=== PATIENT | male | born 1950 | race Caucasian/White ===

== ENCOUNTER → 2016-11-30 10:00 | Outpatient (CLI) | payer MEDICARE, BC ==
[2015-01-02 14:12] VITALS: BMI 32.0
[~2016-11-30 10:00] MED LIST: ACETAMINOPHEN500 M1 PO; ASCORBIC ACID500 MG PO; BAYER CHEWABLE81 MG PO; DIPHEDRYL25 MG PO; LISINOPRIL2.5 MG PO; MULTIPLE VITAMI1 TA1 PO; NEURONTIN600 MG PO; PEPCID20 MG PO; ULTRAM50 MG PO; VITAMIN D2000 UNIT PO; ZANTAC150 MG PO
== END | disposition home or self-care (01) ==
LOC: D.RAD 10:00
DX: R06.00 Dyspnea, unspecified (principal)

== ENCOUNTER 2016-12-15 11:41 | Emergency (ER) | payer MEDICARE, BC ==
[2015-01-02 14:12] VITALS: BMI 32.0
== END 2016-12-15 14:25 | disposition left against medical advice (07) ==
LOC: D.ER 11:41
DX: T18.0XXA Foreign body in mouth, initial encounter (principal); X58.XXXA Exposure to other specified factors, initial encounter; Y93.89 Activity, other specified; Y92.89 Other specified places as the place of occurrence of the external cause

== ENCOUNTER 2016-12-24 12:39 | Inpatient (IN) | payer MEDICARE, BC ==
[~2016-12-24] VITALS: Ht 172.7 cm; Wt 96.6 kg
--- NOTE | ~2016-12-24 | OP ---
PATIENT NAME: ALANNA LOPEZ MEDICAL RECORD: [id number] :[birth year] LOCATION:[facility] ADMISSION DATE:12/24/16 SURGEON: SILVERIO HANKINS MD DATE OF OPERATION: 12/25/2016 PREOPERATIVE DIAGNOSES: 1. Retained foreign body in the appendix. 2. Hypertension. 3. Coronary artery disease. 4. Gastroesophageal reflux disease. POSTOPERATIVE DIAGNOSES: 1. Retained foreign body in the appendix. 2. Hypertension. 3. Coronary artery disease. 4. Gastroesophageal reflux disease. PROCEDURE: Laparoscopic appendectomy. SURGEON: Silverio Hankins MD. REPORT OF PROCEDURE: Preoperatively, the patient had had a CT scan showing evidence of metallic object in the base of the appendix. The patient was taken to the operating room and his abdomen was prepped and draped in sterile fashion. A skin incision was made on the superior aspect of the umbilicus, 0 Vicryls were placed in the fascia bilaterally and the fascia was incised with 15-blade. I then bluntly entered the peritoneal cavity and placed a 12-mm Cecile port. Under direct visualization, a 5-mm trocar was placed in the left lower quadrant and another 5-mm trocar was placed in the suprapubic region. The appendix was grasped and elevated and showed no signs of any inflammatory changes. I could not feel any evidence of a firm mass initially with grabbing. The appendix was long and tortuous with a lot of fatty tissue around it. I was eventually able to pull the appendix up and upon feeling the base of the appendix, I did not feel this metallic structure. I went ahead and made a window between the base of the appendix and the mesoappendix, and the appendix was transected using a 45 blue load Endo-SHALINI stapler. The mesoappendix was then transected with the 45 white load Endo-SHALINI stapler. The appendix was removed and sent out to pathology. They requested an x-ray and upon x-ray, it showed that the metallic structure was not present within the appendix. The patient's fascia at this point have been closed with interrupted 0 Vicryls times 3. The subcutaneous tissues were irrigated out with normal saline and infused with 10 mL of 0.25% Marcaine with epinephrine. The skin incisions were all closed with subcutaneous 5-0 Monocryl and dressed appropriately. The patient had been set up for postoperatively x-ray of the abdomen as it was felt that the metallic structure probably just fallen out of the appendix and into the colon with manipulation. COMPLICATIONS: None. CONDITION: Stable. ANESTHESIA: General endotracheal and local. BLOOD LOSS: Minimal. TRANSINT:[id number] Voice Confirmation ID: [id number] DOCUMENT ID: [id number] OPERATIVE REPORT [id number] ALANNA LOPEZ CHRISTIAN MD CC: JOSE M FERNANDEZ DO [id number] DICTATION DATE: 12/25/16 1024 MOBILITY ENGINEER: 12/25/16 1408 ADM IN [facility] [address] [place] [address]
--- NOTE | 2016-12-24 12:55 | NUR ---
RECEIVED TO ROOM [address] FERNANDEZ'S OFFICE. A/O X3. IN ROOM. NO C/O PAIN OR DISCOMFORT AT THIS TIME. SKIN INTACT EXCEPT SMALL SCABBED AREA TO RIGHT CLAVICAL AREA AND WHAT PATIENT STATES ARE MULTIPLE ANT BITES TO RIGHT ANKLE. IV SITED TO RIGHT HAND AFTER 2 ATTEMPTS WITH 22G.
[2016-12-24] MEDS ORDERED: COREG6.25 MG PO (13:00)
[2016-12-24] MEDS ORDERED: OMEPRAZOLE20 M1 PO (13:00)
[2016-12-24 13:01] VITALS: BP 143/71; BMI 32.4
[2016-12-24 14:37] LABS: BASOPHILS 0.5 % (0-2); EOSINOPHILS 2.7 % (0-7); HEMATOCRIT 42.3 % (42.0-54.0); HEMOGLOBIN 14.4 g/dL (13.5-17.5); IMMATURE GRANULOCYTES 0.4 % (0-5); LYMPHOCYTES 26.9 % (15-50); MCH 31.5 pg (26.0-34.0); MCV 92.6 fL (80.0-100.0); MEAN PLATELET VOLUME 9.7 fL (7.4-10.4); MONOCYTES 7.4 % (2-11); NEUTROPHILS 62.1 % (40-80); PLATELET COUNT 187 10x3/uL (130-400); RBC 4.57 10x6/uL (4.20-6.10); RDW 12.4 % (11.5-14.5); WBC 9.2 10x3/uL (4.8-10.8)
[2016-12-24 14:59] LABS: ALBUMIN 3.7 g/dL (3.4-5.0); ALKALINE PHOSPHATASE 56 U/L (46-116); ALT (SGPT) 33 U/L (10-68); BILIRUBIN - TOTAL 0.46 mg/dL (0.2-1.3); CALC OSMOLALITY 280 mosm/kg (275-300); CALCIUM 8.8 mg/dL (8.5-10.1); CARBON DIOXIDE 25.3 mmol/L (21.0-32.0); CHLORIDE - SERUM 106 mmol/L (98-107); CREATININE - SERUM 0.9 mg/dL (0.6-1.3); GLUCOSE 95 mg/dL (74-106); POTASSIUM - SERUM 4.1 mmol/L (3.5-5.1); PROTEIN - SERUM 6.2 g/dL (6.4-8.2); SODIUM 140 mmol/L (136-145); UREA NITROGEN 18 mg/dL (7-18); eGFR NON AFRICAN AMERICAN 90 mL/min (90-120)
[2016-12-24 16:17] VITALS: BP 143/91
--- NOTE | 2016-12-24 17:30 | NUR ---
SPOKE WITH DR MILLIE AMADOR C/O ITCHING TO ANT BITES. NEW ORDERS RECEIVED.
--- NOTE | 2016-12-24 18:11 | NUR ---
DR. HANKINS HERE AT THIS TIME.
[2016-12-24 20:00] VITALS: BP 140/79
--- NOTE | 2016-12-24 22:08 | NUR ---
ASSESSED AT THE BEGINNING OF THE SHIFT. PT IS ALERT AND ORIENTED, ABLE TO VERBALIZE NEEDS. HE IS AWARE THAT HE WILL BE NPO AT MIDNIGHT FOR SURGERY IN THE AM. KENALOG CREAM WAS APPLIED TO HIS RIGHT ANKLE AND HIP BY PT FOR ICTHING OF ANT BITES HE RECEIVED AT HOME. HE IS ABLE TO GET UP TO THE BATHROOM AD BLADIMIR AND TURNS BY HIMSELF. THE BED IS LOW, RAILS UP X'S 2 WITH THE CALL LIGHT AT HAND.
[2016-12-25] VITALS (14 sets, daily range): BP systolic 116–152; BP diastolic 64–88; Ht 172.7 cm; Wt 96.6 kg
[2016-12-25 05:42] LABS: BASOPHILS 0.8 % (0-2); HEMATOCRIT 40.5 % (42.0-54.0); HEMOGLOBIN 13.6 g/dL (13.5-17.5); IMMATURE GRANULOCYTES 0.1 % (0-5); LYMPHOCYTES 39.7 % (15-50); MCH 31.6 pg (26.0-34.0); MCHC 33.6 g/dL (31.0-37.0); MCV 94.2 fL (80.0-100.0); MEAN PLATELET VOLUME 9.8 fL (7.4-10.4); MONOCYTES 8.7 % (2-11); NEUTROPHILS 46.7 % (40-80); PLATELET COUNT 205 10x3/uL (130-400); RDW 12.4 % (11.5-14.5); WBC 7.3 10x3/uL (4.8-10.8)
[2016-12-25 05:52] LABS: ALBUMIN 3.1 g/dL (3.4-5.0); ALKALINE PHOSPHATASE 49 U/L (46-116); ALT (SGPT) 27 U/L (10-68); BILIRUBIN - TOTAL 0.28 mg/dL (0.2-1.3); CALC OSMOLALITY 281 mosm/kg (275-300); CALCIUM 8.6 mg/dL (8.5-10.1); CARBON DIOXIDE 28.5 mmol/L (21.0-32.0); CHLORIDE - SERUM 107 mmol/L (98-107); CREATININE - SERUM 0.9 mg/dL (0.6-1.3); GLUCOSE 105 mg/dL (74-106); POTASSIUM - SERUM 3.9 mmol/L (3.5-5.1); PROTEIN - SERUM 5.7 g/dL (6.4-8.2); SODIUM 141 mmol/L (136-145); UREA NITROGEN 16 mg/dL (7-18); eGFR NON AFRICAN AMERICAN 90 mL/min (90-120)
--- NOTE | 2016-12-25 07:53 | NUR ---
AWAKE AND ALERT. ORIENTED X3. NO C/O AT THIS TIME. LUNGS ARE CLEAR BILATERALLY, NO COUGH NOTED. SKIN IS INTACT WITHOUT REDNESS EXCEPT AREAS WITH ANT BITES WHICH THE KENALOG IS HELPING WITH THE ITCHING. IV TO RIGHT HAND IS PATENT WITHOUT REDNESS AT INSERTION SITE. DENIES NEEDS.
--- NOTE | 2016-12-25 10:02 | NUR ---
RETURNED FROM SURGERY. A/O X3. AT BEDSIDE. 3 SMALL INSERTION SITES TO ABDOMEN WITH DRY INTACT BANDAIDS IN PLACE.
--- NOTE | 2016-12-25 10:21 | NUR ---
PT'S WEDDING RING REMOVED IN HOLDING PER SANGEETHA AND TAKEN TO PT'S IN HIS ROOM PT STATES THAT HE WANTS TO KEEP THE FOREIGN BODY, I EXPLAINED TO HIM THAT HE WOULD HAVE TO REQUEST IT FROM PATHOLOGY
--- NOTE | 2016-12-25 13:07 | NUR ---
Patient Name: ALANNA LOPEZ Admission Status: Urgent Accout number: [id number] Admission Date: 12-24-2016 : 1950 Admission Diagnosis:FOREIGN BODY IN COLON, INITIAL ENCOUNTER Attending: OMAR Current LOS: 1 Anticipated DC Date: 12-27-2016 Planned Disposition: Home Primary Insurance: MEDICARE A & B Discharge Planning Comments: CM MET WITH PT ADN (YOLETTE) TO ASSESS DISCHARGE PLANNING & NEEDS. PT STATED DISCHARGE PLAN IS TO RETURN TO HOME AND STATES THAT IT IS A SAFE ENVIRONMENT AND HIS WILL DRIVE HIME HOME WHEN THE TIME COMES. PT DENIES ANY OTHER CM NEEDS AT THIS TIME. CM WILL CONTINUE TO FOLLOW AND ASSIST NEEDED WITH DISCHARGE PLANNING/NEEDS. PCP: JIM PHARMACY: [facility] YOLETTE LOPEZ (SPOUSE) [phone] Campus Interviews Intern: Ro Underwood * Is the patient Alert and Oriented? Yes 0 * How many steps to enter\exit or inside your home? 0 0 * PCP JIM 0 * [facility] 0 * Preadmission Environment Home with Family 0 * ADLs Independent 0 * Equipment None 0 * List name and contact numbers for known caregivers / representatives who currently or will assist patient after discharge: YOLETTE LOPEZ (SPOUSE) [phone] 0 * Community resources currently utilized None 0 * Additional services required to return to the preadmission environment? Yes 0 * Can the patient safely return to the preadmission environment? Yes 0 * Has this patient been hospitalized within the prior 30 days at any hospital? No 0 Grand Total: 0
[2016-12-25] MEDS ORDERED: DILAUDID2 MG PO (13:36)
--- NOTE | 2016-12-25 14:22 | NUR ---
ATE ALMOST ALL OF LUNCH. AMBULATED 100 FEET WITH SBA WITHOUT DIFFICULTY. NO C/O AT THIS TIME.
--- NOTE | 2016-12-25 14:53 | NUR ---
CM NOTE: PT DISCHARGING HOME TODAY EXPRESSES NO NEEDS FOR DISCHARGE. TO DRIVE HOME RIAN RILEY RN
--- NOTE | 2016-12-25 16:01 | NUR ---
AMBULATED OVER 500 FEET SBA WITHOUT DIFFCULTY. DISCHARGED TO HOME WITH AMBULATORY. DISCHARGE INSTRUCTIONS GIVEN BOTH VERBALLY AND WRITTEN. ALL QUESTIONS ANSWERED. PATIENT AND VERBALIZED UNDERSTANDING OF SAME. NEEDED PRESCRIPTIONS GIVEN TO PATIENT. IV TO RIGHT HAND D/C WITH CATHETER INTACT.
== END 2016-12-25 16:02 | disposition home or self-care (01) | DRG 343 ==
LOC: D.MS 12:39
PROVIDERS: Surgery; ADMIT Family Medicine
PROC: 0DTJ4ZZ Resection of Appendix, Percutaneous Endoscopic Approach (ICD-10-PCS; principal; 2016-12-25 13:00)
DX: T18.4XXA Foreign body in colon, initial encounter (principal); I10 Essential (primary) hypertension; X58.XXXA Exposure to other specified factors, initial encounter; Y93.E8 Activity, other personal hygiene; Y92.531 Health care provider office as the place of occurrence of the external cause; I25.10 Atherosclerotic heart disease of native coronary artery without angina pectoris; K21.9 Gastro-esophageal reflux disease without esophagitis

== ENCOUNTER → 2017-01-22 08:36 | Outpatient (CLI) | payer MEDICARE, BC ==
[2016-12-25 12:12] VITALS: BMI 32.3
[~2017-01-22 08:36] MED LIST changes: +COREG6.25 MG PO; +DILAUDID2 MG PO; +OMEPRAZOLE20 M1 PO
== END | disposition home or self-care (01) ==
LOC: D.MRI 01-21 14:30
DX: S82.65XA Nondisplaced fracture of lateral malleolus of left fibula, initial encounter for closed fracture (principal)

== ENCOUNTER 2018-07-26 07:30 | Inpatient (IN) | payer MEDICARE, BC ==
[2018-07-25 10:12] LABS: BASOPHILS 0.6 % (0-2); EOSINOPHILS 7.2 % (0-7); HEMATOCRIT 41.3 % (42.0-54.0); HEMOGLOBIN 14.1 g/dL (13.5-17.5); IMMATURE GRANULOCYTES 0.2 % (0-5); LYMPHOCYTES 45.7 % (15-50); MCH 31.4 pg (26.0-34.0); MCHC 34.1 g/dL (31.0-37.0); MEAN PLATELET VOLUME 9.3 fL (7.4-10.4); MONOCYTES 8.4 % (2-11); NEUTROPHILS 37.9 % (40-80); PLATELET COUNT 184 10x3/uL (130-400); RBC 4.49 10x6/uL (4.20-6.10); RDW 12.4 % (11.5-14.5); WBC 5.3 10x3/uL (4.8-10.8)
[2018-07-25 10:15] LABS: CALC OSMOLALITY 280 mosm/kg (275-300); CARBON DIOXIDE 27.8 mmol/L (21.0-32.0); CHLORIDE - SERUM 105 mmol/L (98-107); GLUCOSE 106 mg/dL (74-106); POTASSIUM - SERUM 4.2 mmol/L (3.5-5.1); SODIUM 141 mmol/L (136-145); UREA NITROGEN 13 mg/dL (7-18); eGFR NON AFRICAN AMERICAN 79 mL/min (90-120)
[2018-07-25 10:16] LABS: APTT 26.8 SECONDS (22.8-39.4); INR 1.08 (0.85-1.17); PROTIME 13.5 SECONDS (11.6-15.0)
[2018-07-25 10:18] LABS: APPEARANCE CLEAR (CLEAR); BILIRUBIN NEGATIVE (NEGATIVE); COLOR DK YELLOW (YELLOW); GLUCOSE NEGATIVE (NEGATIVE); KETONE NEGATIVE (NEGATIVE); NITRITE NEGATIVE (NEGATIVE); PROTEIN NEGATIVE (NEGATIVE); SPECIFIC GRAVITY 1.015 (1.005-1.020); UROBILINOGEN NORMAL (NORMAL)
[~2018-07-26] VITALS: Ht 175.3 cm; Wt 90.9 kg
--- NOTE | ~2018-07-26 | MORECARE ---
CASE MANAGEMENT DISCHARGE SUMMARY PATIENT: ALANNA LOPEZ UNIT: [id number] ADM DATE: 07/26/18 AGE: 68 : 51 SEX: M ROOM/BED: D.2222 AUTHOR: PASQUALE,DOC PHYSICIAN: REFERRING PHYSICIAN: JONATAN TAY DO DATE OF SERVICE: 07/28/18 Discharge Plan Patient Name: ALANNA LOPEZ Facility: [facility]:[place] : 1950 Planned Disposition: Home Anticipated Discharge Date: 07/27/18 Discharge Date: 07/27/2018 Expected LOS: 1 Initial Reviewer: [email or web address] Initial Review Date: 07/27/2018 Generated: 07/28/18 4:12 pm Comments DCP- Discharge Planning Updated by [email or web address]: Emerald Galicia on 07/27/18 1:[address] Patient Name: ALANNA LOPEZ Admission Status: Elective Accout number: [id number] Admission Date: 07-26-2018 : 1950 Admission Diagnosis: Attending: JONATAN TAY Current LOS: 1 Anticipated DC Date: 07-27-2018 Planned Disposition: Home Primary Insurance: [employer] Discharge Planning Comments: CM met with patient and his to discuss discharge planning. He lives with his in a one story home. He is independent with all ADL's and IADL's. His is here to drive him home. He has his arm in a sling and is dressed. He denies need for DME or home health services. No needs identified. CM will continue to follow and assist with discharge planning/needs. Dials Supervisor: Emerald Galicia DCPIA - Discharge Planning Initial Assessment Updated by [email or web address]: Emerald Galicia on 07/27/18 2:43 pm * Is the patient Alert and Oriented? Yes * How many steps to enter\exit or inside your home? 0/0 * PCP Dr. Baeza * [facility] * Preadmission Environment Home with Family * ADLs Independent * Equipment None * List name and contact numbers for known caregivers / representatives who currently or will assist patient after discharge: Shaneka - - [phone] * Verbal permission to speak to the caregivers and representatives has been obtained from the patient. Yes * Community resources currently utilized None * Additional services required to return to the preadmission environment? No * Can the patient safely return to the preadmission environment? Yes * Has this patient been hospitalized within the prior 30 days at any hospital? No Last DP export: 07/27/18 1:45 Patient Name: ALANNA LOPEZ Page [id number] at 1512 All edits/amendments must be made on the electronic document DICTATION DATE: 07/28/181511 PAVING AND SURFACING LABOURER: SHANT 07/28/181511 RPT#: [id number] DC DATE:07/27/18 STATUS: DIS IN [facility] [address] [place] [address] END OF REPORT
--- NOTE | ~2018-07-26 | OP ---
PATIENT NAME: ALANNA LOPEZ MEDICAL RECORD: [id number] :[birth year] LOCATION:[facility] ADMISSION DATE:07/26/18 SURGEON: AUSTEN TAY DO DATE OF OPERATION: 07/26/2018 PROCEDURE PERFORMED: Left total shoulder arthroplasty. PREOPERATIVE DIAGNOSIS: Severe end-stage left shoulder osteoarthritis. POSTOPERATIVE DIAGNOSIS: Severe end-stage left shoulder osteoarthritis. INDICATIONS: Mr. Lopez is a 68-year-old male who has been coming to my clinic for some time. He has severe end-stage arthritis. He has pain with motion and limited motion. He had injections and physical therapy, and eventually they stopped working. He wanted something done surgically. He is aware of the risks and benefits including infection, bleeding, damage to nerves or vessels, loss of function of shoulder, and need for further surgery. He signed the consent. SURGEON: Austen Tay DO DESCRIPTION OF PROCEDURE: The patient was given a block by anesthesia in the preoperative area. I was assisted by Tre Estrella, Advanced Nurse Practitioner. He passed instruments, held retractors, and closed the wounds. Surgery could not have been performed without his assistance. Once the patient was in the operative suite, he was given 900 mg of clindamycin preoperatively and a gram of TXA. The left shoulder was then prepped and draped in sterile fashion. Time-out was performed and everyone was in agreement with correct side, site, patient, and procedure. The incision had been marked out and incision began with a 10 blade scalpel down to the deltopec interval. The cephalic vein was encountered and taken laterally. A Cardoza was taken at that time to loosen the adhesions in the subacromial space and over the deltoid on top of the rotator cuff. Then, the brown retractor was put into place and the proximal first centimeter of the pedicle was released. Long head of the biceps tendon was tenodesed to this and cut. The rotator interval was then opened and the subscap was tagged and peeled off the lesser tuberosity using the Bovie. The shoulder was then exposed. The cutting guide was put in the canal of the humerus and the humeral head was cut in 30 degrees of retroversion. Once the humeral head was cut, the anterior osteophytes were removed on the inferior neck and the glenoid was exposed. Once the glenoid was exposed, the labrum was removed as well as the biceps tendon off the superior labrum and a centering pin was used. The glenoid was sized and sized to be 40. The centering pin was then used and the half aguilar reamer was used to ream for the implant. The center drill had been done after this with center hole of the glenoid poly. The other 3 peripheral holes were then drilled and the site was cleaned thoroughly. Then, cement was entered into the holes and the glenoid poly was pressed in and held into place while the cement dried. Once the cement had dried, all the excess cement had been removed. The humeral head was once again exposed and broached to 4. This fit well. A 48 head was measured and seemed to fit very well. This was reduced and had very good fit with 50% shuck, which bounced back very quickly into the joint. Trial was then removed and the final implant was put into place after drill holes had been placed to reattach the subscapularis tendon. A #2 Ethibond was placed through them. Then, the actual implant was put in, impacted, and reduced. Then, the subscap tendon was repaired using Kevin-Estevan stitches to the lesser tuberosity of the humerus. The rotator OPERATIVE REPORT [id number] ALANNA LOPEZ W interval was then closed with same #2 Ethibond in a ripvet-sw-esuqb fashion. The range of motion of the shoulder was very good. Prior to the closure of the subscapularis tendon, Hibiclens was poured in the joint and irrigated out in order to clean the area. Then, the subscap was repaired. Surgicel beads were then placed into the wound and the interval between the deltoid and the pectoralis major was loosely closed with #1 Vicryl. Skin was closed with 2-0 Vicryl in inverted interrupted fashion with 4-0 Monocryl on the skin and then Prineo skin glue was placed on the skin for skin closure. Telfa and Tegaderm were then placed on top of the incision. The patient was placed in a sling with pillow, awakened, and taken to recovery in stable condition. BLOOD LOSS: Approximately 150 mL. COMPLICATIONS: None. TRANSINT:[id number] Voice Confirmation ID: [id number] DOCUMENT ID: [id number] AUSTEN TAY DO at 1543 CC: JOSE M FERNANDEZ DO [id number] DICTATION DATE: 07/26/18 1133 RADIO TELEVISION TECHNICAL DIRECTOR: 07/26/18 1326 ADM IN [place] [id number] [place] [address]
--- NOTE | ~2018-07-26 | MORECARE ---
CASE MANAGEMENT DISCHARGE SUMMARY PATIENT: ALANNA LOPEZ UNIT: [id number] ADM DATE: 07/26/18 AGE: 68 : [birth year] SEX: M ROOM/BED: D.2222 AUTHOR: PASQUALE,DOC PHYSICIAN: REFERRING PHYSICIAN: JONATAN TAY DO DATE OF SERVICE: 07/27/18 Discharge Plan Patient Name: ALANNA LOPEZ Facility: [facility]:[place] : 1950 Planned Disposition: Home Anticipated Discharge Date: 07/27/18 Discharge Date: Expected LOS: 1 Initial Reviewer: [email or web address] Initial Review Date: 07/27/2018 Generated: 07/27/18 3:45 pm Comments DCP- Discharge Planning Updated by [email or web address]: Emerald Galicia on 07/27/18 1:[address] Patient Name: ALANNA LOPEZ Admission Status: Elective Accout number: [id number] Admission Date: 07-26-2018 : 1950 Admission Diagnosis: Attending: JONATAN TAY Current LOS: 1 Anticipated DC Date: 07-27-2018 Planned Disposition: Home Primary Insurance: [employer] Discharge Planning Comments: CM met with patient and his to discuss discharge planning. He lives with his in a one story home. He is independent with all ADL's and IADL's. His is here to drive him home. He has his arm in a sling and is dressed. He denies need for DME or home health services. No needs identified. CM will continue to follow and assist with discharge planning/needs. Wire Dropper: Emerald Galicia DCPIA - Discharge Planning Initial Assessment Updated by [id number]: Emerald Galicia on 07/27/18 2:43 pm * Is the patient Alert and Oriented? Yes * How many steps to enter\exit or inside your home? 0/0 * PCP Dr. Baeza * [facility] [address] * Preadmission Environment Home with Family * ADLs Independent * Equipment None * List name and contact numbers for known caregivers / representatives who currently or will assist patient after discharge: Shaneka - faustino - [phone] * Verbal permission to speak to the caregivers and representatives has been obtained from the patient. Yes * Community resources currently utilized None * Additional services required to return to the preadmission environment? No * Can the patient safely return to the preadmission environment? Yes * Has this patient been hospitalized within the prior 30 days at any hospital? No Patient Name: ALANNA LOPEZ Page 81415 at 1445 All edits/amendments must be made on the electronic document DICTATION DATE: 07/27/181444 HOUSEHOLD MANAGER: SHANT 07/27/18 1445 RPT#: [id number] DC DATE: STATUS: ADM IN [facility] [address] [place] [address] END OF REPORT
[2018-07-26 08:17] VITALS: BP 134/73; BMI 29.6
[2018-07-26 12:47] VITALS: BP 132/79
[2018-07-26 12:58] VITALS: BP 132/79; Ht 175.3 cm; Wt 90.9 kg
[2018-07-26 17:31] VITALS: BP 122/81
[2018-07-26 20:00] VITALS: BP 128/85
[2018-07-27] VITALS: BP 139/97
[2018-07-27 04:00] VITALS: BP 120/74
[2018-07-27 05:02] LABS: BASOPHILS 0.1 % (0-2); EOSINOPHILS 0 % (0-7); HEMATOCRIT 37.5 % (42.0-54.0); HEMOGLOBIN 12.8 g/dL (13.5-17.5); IMMATURE GRANULOCYTES 0.2 % (0-5); LYMPHOCYTES 9.6 % (15-50); MCH 31.3 pg (26.0-34.0); MCHC 34.1 g/dL (31.0-37.0); MCV 91.7 fL (80.0-100.0); MEAN PLATELET VOLUME 9.4 fL (7.4-10.4); MONOCYTES 7.6 % (2-11); NEUTROPHILS 82.5 % (40-80); PLATELET COUNT 188 10x3/uL (130-400); RBC 4.09 10x6/uL (4.20-6.10); RDW 12.3 % (11.5-14.5); WBC 12.8 10x3/uL (4.8-10.8)
[2018-07-27 05:22] LABS: CALC OSMOLALITY 279 mosm/kg (275-300); CALCIUM 8.2 mg/dL (8.5-10.1); CARBON DIOXIDE 25.5 mmol/L (21.0-32.0); CHLORIDE - SERUM 105 mmol/L (98-107); GLUCOSE 145 mg/dL (74-106); POTASSIUM - SERUM 4.4 mmol/L (3.5-5.1); SODIUM 138 mmol/L (136-145); UREA NITROGEN 16 mg/dL (7-18); eGFR NON AFRICAN AMERICAN 79 mL/min (90-120)
[2018-07-27 08:15] VITALS: BP 123/73
[2018-07-27] MEDS ORDERED: KEFLEX500 MG PO (14:02)
[2018-07-27] MEDS ORDERED: VISTARIL50 MG PO (14:02)
[2018-07-27] MEDS ORDERED: OXYCODONE HCL5 M1 PO (14:02)
== END 2018-07-27 15:45 | disposition home or self-care (01) | DRG 483 ==
LOC: D.SDCHOLD 07:30 → D.MS 07:30 → D.SDCHOLD 09:00 → D.MS 12:45
PROVIDERS: Internal Medicine Nephrology; Orthopaedic Surgery
PROC: 0RRK0JZ Replacement of Left Shoulder Joint with Synthetic Substitute, Open Approach (ICD-10-PCS; principal; 2018-07-26 09:00)
DX: M19.012 Primary osteoarthritis, left shoulder (principal); I25.10 Atherosclerotic heart disease of native coronary artery without angina pectoris; I10 Essential (primary) hypertension

== ENCOUNTER → 2018-12-14 13:01 | Outpatient (CLI) | payer MEDICARE, BC ==
[2018-07-26 12:58] VITALS: BMI 29.6
[~2018-12-14 13:01] MED LIST changes: +KEFLEX500 MG PO; +OXYCODONE HCL5 M1 PO; +VISTARIL50 MG PO
== END | disposition home or self-care (01) ==
LOC: D.US 13:00
PROVIDERS: ATTEND Family Medicine
DX: R60.0 Localized edema (principal)

== ENCOUNTER 2018-12-24 19:31 | Emergency (ER) | payer MEDICARE, BC ==
[~2018-12-24] VITALS: Ht 175.3 cm; Wt 95.5 kg
[2018-12-24 19:36] VITALS: Ht 175.3 cm; Wt 95.5 kg
[2018-12-24] MEDS ORDERED: HYDROCODON-ACE1 EAC7 (19:38)
[2018-12-24] MEDS ORDERED: VOLTAREN75 MG PO (21:01)
[2018-12-24 21:35] VITALS: BP 132/85
== END 2018-12-24 21:35 | disposition home or self-care (01) ==
LOC: D.ER 19:31
DX: M25.512 Pain in left shoulder (principal); M75.92 Shoulder lesion, unspecified, left shoulder

== ENCOUNTER → 2019-07-19 08:37 | Outpatient (CLI) | payer MEDICARE, BC ==
[2018-12-24 19:36] VITALS: BMI 31.0
[~2019-07-19 08:37] MED LIST changes: +HYDROCODON-ACE1 EAC7; +VOLTAREN75 MG PO
--- NOTE | 2019-07-21 13:04 | EC ---
PATIENT:ALANNA LOPEZ DATE OF SERVICE: 07/19/19 SEX: M MEDICAL RECORD: [id number] DATE OF : [birth year] LOCATION:D.[facility] AGE OF PATIENT: 69 ADMISSION DATE: 07/19/19 REFERRING PHYSICIAN: INTERPRETING PHYSICIAN: ZUNILDA CLAY MD ECHOCARDIOGRAM REPORT ECHO CHARGES 4 ECHO COMPLETE Date: 07/19/19 CLINICAL DIAGNOSIS: ROTHMAN H/O CAD/HTN ECHOCARDIOGRAPHIC MEASUREMENTS (adult normal given) AC root (d.<3.7cm) 3.4 cm LV Septum d (<1.2 cm> 1.3 cm Valve Excursion 2.2 cm LV Septum (systole) 1.9 cm Left Atria (s.<4.0cm> 4.3 cm LVPW d(<1.2cm) 1.2 cm RV (d.<2.3cm) 2.6 cm LVPW (sytole) 1.8 cm LV diastole(<5.6CM) 4.8 cm MV E-F(>70mm/sec) cm LV systole 2.9 cm LVOT Diameter 2.2 cm MV exc.(>10mm) cm Est.ejection fraction (50-75%) % DOPPLER: LVIT cm/sec A 72.0 cm/sec E 62.0 cm/sec LA cm/sec RVSP mmHg LVOT 82.0 cm/sec AOP1/2T m/s Asc. Ao 113 cm/sec RVOT 62.0 cm/sec RA cm/sec PA 86.0 cm/sec AV Gradient Peak 5.2 mmHg AV Mean 3.1 mmHg AV Area 3.2 cm MV Gradient Peak 2.9 mmHg MV Mean 1.2 mmHg MV Area cm COMMENTS: OP - HC Program Management Specialist: Laverne ELOE Benzene Washer: 3 Dr. Coats TAPE# PACS Pericardial Effusion N DATE OF SERVICE: 07/19/2019 Adequate 2-D echo, color-flow and spectral Doppler, and M-mode. LVH is present. LV internal dimensions are normal. LV appears to be mildly globally hypo with EF probably lower limits of normal at 50%. Aortic valve sclerosis without evidence of stenosis by Doppler interrogation. Left atrium mildly dilated 4.3 cm. Mitral valve shows no prolapse. Trace MR. Right-sided chambers are grossly normal. Trace TR. ECHOCARDIOGRAM REPORT [id number] ALANNA LOPEZ TRANSINT:[id number] Voice Confirmation ID: [id number] DOCUMENT ID: [id number] ZUNILDA CLAY MD at 1304 CC: [id number] DICTATION DATE: 07/20/19 1500 TRACK GRINDER: 07/20/19 2321 DEP CLI 07/19/19 [place] [id number] [place] [address]
== END | disposition home or self-care (01) ==
LOC: D.HCCECHO 08:37
PROVIDERS: ATTEND Internal Medicine Interventional Cardiology
DX: I25.10 Atherosclerotic heart disease of native coronary artery without angina pectoris (principal)

== ENCOUNTER 2020-01-02 08:01 | Emergency (ER) | payer MEDICARE ==
[~2020-01-02] VITALS: Ht 175.3 cm; Wt 97.7 kg
[2020-01-02 08:15] VITALS: Ht 175.3 cm; Wt 97.7 kg
[2020-01-02] MEDS ORDERED: OMEPRAZOLE20 M1 PO (08:18)
[2020-01-02] MEDS ORDERED: ULTRAM50 MG PO ×2 (08:19→10:22)
[2020-01-02] MEDS ORDERED: CO Q-1030 MG (08:19)
[2020-01-02] MEDS ORDERED: AMITRIPTYLINE H50 MG PO (08:19)
[2020-01-02] MEDS ORDERED: FISH OIL 1,0001 CA1 (08:19)
[2020-01-02] MEDS ORDERED: MULTI-DAY VITAM1 TAB (08:20)
[2020-01-02] MEDS ORDERED: [UNRECOGNIZED DRUG - OTHER] (08:20)
[2020-01-02] MEDS ORDERED: SAW PALMETTO450 MG (08:20)
[2020-01-02] MEDS ORDERED: MILK THISTLE (08:21)
[2020-01-02] MEDS ORDERED: ASHWAGANDA (08:21)
[2020-01-02] MEDS ORDERED: K2 (08:21)
[2020-01-02] MEDS ORDERED: BOSWELLIA (08:21)
[2020-01-02 08:48] LABS: BASOPHILS 0.5 % (0-2); BILIRUBIN NEGATIVE (NEGATIVE); GLUCOSE 50 mg/dL (NEGATIVE); HEMATOCRIT 42.4 % (42.0-54.0); HEMOGLOBIN 14.6 g/dL (13.5-17.5); IMMATURE GRANULOCYTES 0.2 % (0-5); KETONE NEGATIVE (NEGATIVE); LYMPHOCYTES 29.2 % (15-50); MCH 31.6 pg (26.0-34.0); MCHC 34.4 g/dL (31.0-37.0); MCV 91.8 fL (80.0-100.0); MEAN PLATELET VOLUME 9.2 fL (7.4-10.4); MONOCYTES 9.6 % (2-11); NEUTROPHILS 57.5 % (40-80); NITRITE NEGATIVE (NEGATIVE); PLATELET COUNT 192 10x3/uL (130-400); RBC 4.62 10x6/uL (4.20-6.10); RDW 12.3 % (11.5-14.5); UROBILINOGEN NORMAL (NORMAL); WBC 6.6 10x3/uL (4.8-10.8)
[2020-01-02 08:54] LABS: CALC OSMOLALITY 280 mosm/kg (275-300); CALCIUM 9.4 mg/dL (8.5-10.1); CARBON DIOXIDE 26.6 mmol/L (21.0-32.0); CHLORIDE - SERUM 104 mmol/L (98-107); CREATININE - SERUM 1.2 mg/dL (0.6-1.3); GLUCOSE 135 mg/dL (74-106); POTASSIUM - SERUM 4.4 mmol/L (3.5-5.1); SODIUM 138 mmol/L (136-145); UREA NITROGEN 20 mg/dL (7-18); eGFR NON AFRICAN AMERICAN 64 mL/min (90-120)
[2020-01-02 09:03] LABS: ALKALINE PHOSPHATASE 67 U/L (30-120); ALT (SGPT) 33 U/L (10-68); AMYLASE - SERUM 30 U/L (25-115); LIPASE 115 U/L (73-393); PROTEIN - SERUM 7.3 g/dL (6.4-8.2); TROPONIN-I < 0.017 ng/mL (0.000-0.060)
[2020-01-02] MEDS ORDERED: FLAGYL500 MG PO (10:22)
[2020-01-02] MEDS ORDERED: LEVAQUIN750 MG PO (10:22)
[2020-01-02] MEDS ORDERED: ZOFRAN ODT4 MG/UDTAB PO (10:26)
[2020-01-02 11:10] VITALS: BP 132/96
== END 2020-01-02 11:12 | disposition home or self-care (01) ==
LOC: D.ER 08:01
PROVIDERS: Family Medicine
DX: R10.9 Unspecified abdominal pain (principal); R19.7 Diarrhea, unspecified; K57.32 Diverticulitis of large intestine without perforation or abscess without bleeding; R11.2 Nausea with vomiting, unspecified; I10 Essential (primary) hypertension; I25.2 Old myocardial infarction

== ENCOUNTER 2020-01-02 16:17 | Emergency (ER) | payer MEDICARE ==
[~2020-01-02] VITALS: Ht 175.3 cm; Wt 100.0 kg
[~2020-01-02 16:17] MED LIST changes: +AMITRIPTYLINE H50 MG PO; +ASHWAGANDA; +BOSWELLIA; +CO Q-1030 MG; +FISH OIL 1,0001 CA1; +FLAGYL500 MG PO; +K2; +LEVAQUIN750 MG PO; +MILK THISTLE; +MULTI-DAY VITAM1 TAB; +SAW PALMETTO450 MG; +ZOFRAN ODT4 MG/UDTAB PO; +[UNRECOGNIZED DRUG - OTHER]
[2020-01-02 16:35] LABS: BASOPHILS 0.3 % (0-2); EOSINOPHILS 2.3 % (0-7); HEMATOCRIT 41.7 % (42.0-54.0); HEMOGLOBIN 14.2 g/dL (13.5-17.5); IMMATURE GRANULOCYTES 0.3 % (0-5); LYMPHOCYTES 31.3 % (15-50); MCH 31.3 pg (26.0-34.0); MCHC 34.1 g/dL (31.0-37.0); MCV 91.9 fL (80.0-100.0); MEAN PLATELET VOLUME 9.1 fL (7.4-10.4); MONOCYTES 8.5 % (2-11); NEUTROPHILS 57.3 % (40-80); PLATELET COUNT 186 10x3/uL (130-400); RBC 4.54 10x6/uL (4.20-6.10); RDW 12.3 % (11.5-14.5); WBC 6.8 10x3/uL (4.8-10.8)
[2020-01-02 16:44] VITALS: Ht 175.3 cm; Wt 100.0 kg
[2020-01-02 16:58] LABS: CALC OSMOLALITY 282 mosm/kg (275-300); CHLORIDE - SERUM 106 mmol/L (98-107); CREATININE - SERUM 1.2 mg/dL (0.6-1.3); GLUCOSE 101 mg/dL (74-106); SODIUM 141 mmol/L (136-145); UREA NITROGEN 17 mg/dL (7-18); eGFR NON AFRICAN AMERICAN 64 mL/min (90-120)
[2020-01-02 17:09] LABS: ALKALINE PHOSPHATASE 58 U/L (30-120); ALT (SGPT) 29 U/L (10-68); AMYLASE - SERUM 26 U/L (25-115); BILIRUBIN - TOTAL 0.74 mg/dL (0.2-1.3); PROTEIN - SERUM 7.3 g/dL (6.4-8.2); TROPONIN-I < 0.017 ng/mL (0.000-0.060)
[2020-01-02 17:10] LABS: LIPASE 85 U/L (73-393)
[2020-01-02 18:12] VITALS: BP 145/80
== END 2020-01-02 18:14 | disposition home or self-care (01) ==
LOC: D.ER 16:17
PROVIDERS: Family Medicine
DX: R10.9 Unspecified abdominal pain (principal); I10 Essential (primary) hypertension; I25.2 Old myocardial infarction

== ENCOUNTER → 2020-01-11 07:51 | Outpatient (CLI) | payer MEDICARE ==
[2020-01-02 16:44] VITALS: BMI 32.5
== END | disposition home or self-care (01) ==
LOC: D.HCCARDIO 07:51
PROVIDERS: ATTEND Internal Medicine Cardiovascular Disease
DX: I25.119 Atherosclerotic heart disease of native coronary artery with unspecified angina pectoris (principal)

== ENCOUNTER → 2020-02-07 07:03 | Outpatient (CLI) | payer MEDICARE ==
[~2020-02-07] VITALS: Ht 175.3 cm; Wt 92.2 kg
--- NOTE | ~2020-02-07 | HEMODYNAMI ---
PATIENT:ALANNA LOPEZ MEDICAL RECORD: [id number] : 52 LOCATION:DAprilCAT ADMISSION DATE: 02/07/20 Generatedon:02/07/202010:38 Patient name: ALANNA LOPEZ Patient #: [id number] : 1950 Date of study: 02/07/2020 Page: Of Hemodynamic Procedure Report Patient Data Patient Demographics Procedure consent was obtained First Name: ALANNA Gender: Male Last Name: JESSICA : 1950 Middle Initial: W Age: 69 year(s) Patient #: [id number] Race: SSN: [id number] Additional ID: [id number] Contact details Address: [address] [place] [address] [place] State: [place] City: [facility] Zip code: [address] Past Medical History Allergies Allergen Reaction Date Comments Reported Codeine 01/02/2015 Penicillins 01/02/2015 Other allergy 02/07/2020 Carey OLMOS Admission Admission Data Admission Date: 02/07/2020 Admission Time: 7:03 Arrival Date: 02/07/2020 Arrival Time: 0:00 Admit Source: Other Insurance Payor: Private health insurance [facility] #: [id number] Lab Results Lab Result Date: 02/07/2020 Lab Result Time: 0:00 Biochemistry Name Units Result Min Max BUN mg/dl 22 --(----)-* 7 18 Creatinine mg/dl 1 --(--*-)-- 0.6 1.3 eGFR ml/min 79.80980 *-(----)-- 90 120 NONAFRICAN CBC Name Units Result Min Max Hemoglobin g/dl 12.8 -*(----)-- 13.5 17.5 Procedure Procedure Types Cath Procedure Diagnostic Procedure LHC LH w/Coronaries Sedation Charges Moderate Sedation up to 30 minutes PCI Procedure Coronary Stent Coronary Stent Initial Hemochron ACT Test Procedure Description Procedure Date Procedure Date: 02/07/2020 Procedure Start Time: 10:10 Procedure End Time: 10:36 Procedure Staff Name Function Aryan Boyce MD Ordering physician Lupillo Jimenez MD Performing Physician Olga Abraham RT Monitor Sharee Feldman RN Nurse Pearl Ordonez RT Scrub Procedure Data Cath Procedure Fluoroscopy Diagnostic fluoroscopy Total fluoroscopy Time: 8.4 time: 8.4 min min Diagnostic fluoroscopy Total fluoroscopy dose: dose: 1340 mGy 1340 mGy Contrast Material Contrast Material Type Amount (ml) Isovue 370 220 Entry Location Entry Primary Successful Side Size Upsize Upsize Entry Closure Jaramillo ccessful Closure Location (Fr) 1 (Fr) 2 (Fr) Remarks Device Remarks Radial Right 6 Fr Mechanical artery Short Compression Estimated blood loss: 5 ml Diagnostic catheters Device Type Used For End Catheter Placement DIAGNOSTIC [place] 110cm 5 Procedure Fr catheter ([id number]) Procedure Complications No complications Procedure Medications Medication Administration Route Dosage 0.9% NaCl I.V. 100 ml/hr Oxygen etCO2 Nasal cannula 2 l/min Lidocaine 2% added to field 20 Heparin Flush Bag added to field 2 bags (1000units/500ml NS) Radial Cocktail added to field 1 syringe (Verapamil 2mg/Nitro 400mcg/Heparin 1500units) Versed I.V. 2 mg Fentanyl I.V. 50 mcg Versed I.V. 2 mg Fentanyl I.V. 50 mcg Heparin Bolus I.V. 5000 units Integrilin (Bolus I.V. 8.5 ml 2mg/ml) Integrilin (Bolus wasted 1.5 ml 2mg/ml) Plavix P.O. 600 mg Versed I.V. 2 mg Fentanyl I.V. 50 mcg Hemodynamics Rest HGB: 12.8 (g/dl) Heart Rate: 61 (bpm) Pressure Samples Time Site Value (mmHg) Purpose Heart Use Rate(bpm) 10:12 LV 97/16,21 Snapshot 97 10:13 AO 109/69(88) Pullback 68 10:13 LV 101/7,15 Pullback 68 Gradients Valve Time Site 1 Site 2 Mean SEP/DFP Peak To Heart Use (mmHg) (sec/min) Peak Rate (mmHg) (bpm) Aortic 10:13 LV AO 0 8 0 68 101/7,15 109/69(88) Calculations Valve P-P Mean Valve Index Valve Source Name Gradient Area Flow (cm2) Aortic 0 0 0 0 Snapshots Pre Cath Intra NCS Post Cath Vital Signs Time Heart Resp SPO2 etCO2 NIBP (mmHg) Rhythm Pain Sedation Rate (ipm) (%) (mmHg) Status Level (bpm) 9:46:04 54 15 98 37.3 139/95(112) SB 0 (11) 10(A) , No pain 9:50:20 60 11 97 36.6 126/77(94) NSR 0 (11) 10(A) , No pain 9:54:36 60 13 98 18.6 116/74(95) NSR 0 (11) 10(A) , No pain 9:58:52 64 10 98 14.6 116/78(95) NSR 0 (11) 10(A) , No pain 10:03:10 63 14 97 28 109/67(84) NSR 0 (11) 10(A) , No pain 10:07:27 63 15 98 26 110/67(87) NSR 0 (11) 10(A) , No pain 10:12:34 66 14 98 38.8 121/93(107) NSR 0 (11) 10(A) , No pain 10:16:52 62 16 94 15.6 111/64(86) NSR 0 (11) 10(A) , No pain 10:21:08 66 14 96 38.1 115/64(97) NSR 0 (11) 9(A) , No pain 10:25:24 62 16 97 36.6 115/70(93) NSR 0 (11) 9(A) , No pain 10:29:44 61 16 96 38.4 131/65(124) NSR 0 (11) 9(A) , No pain 10:34:00 61 11 96 38.1 127/77(106) NSR 0 (11) 10(A) , No pain Medications Time Medication Route Dose Verified Delivered Reason Not es Effectiveness by by 9:45:03 0.9% NaCl I.V. 100 Lupillo Tolliver used for ml/hr TonyGarrison Feldman procedure MD GRANT 9:45:09 Oxygen etCO2 2 l/min Lupillo Tolliver used for Nasal [facility] Feldman procedure cannula MD GRANT 9:45:13 Lidocaine 2% added 20ml Lupillo Wesley for local to vial [place] Tony anesthetic field MD STACK 9:45:17 Heparin Flush added 2 bags Lupillo Wesley used for Bag to Tony Tony procedure (1000units/500ml field MD STACK NS) 9:45:23 Radial Cocktail added 1 Lupillo Wesley used for (Verapamil to syringe Tony Tony procedure 2mg/Nitro field MD STACK 400mcg/Heparin 1500units) 10:06:38 Versed I.V. 2 mg Lupillo Sharee for sedation [facility] Garrison Feldman MD RN 10:06:46 Fentanyl I.V. 50 mcg Lupillo Sharee for sedation [facility] Garrison Feldman MD RN 10:13:42 Versed I.V. 2 mg Lupillo Sharee for sedation [facility] Garrison Feldman MD RN 10:13:46 Fentanyl I.V. 50 mcg Lupillo Sharee for sedation [facility] Garrison Feldman MD RN 10:19:01 Heparin Bolus I.V. 5000 Lupillo Sharee for james ified units [place] Gaston anticoagulation with Dr. STACK RN [place] 10:19:04 Versed I.V. 2 mg Lupillo Sharee for sedation [facility] Garrison Feldman MD RN 10:19:07 Fentanyl I.V. 50 mcg Lupillo Sharee for sedation [facility] Garrison Feldman MD RN 10:19:14 Integrilin I.V. 8.5 ml Lupillo Sharee for (Bolus 2mg/ml) [facility] Garrison Feldman antiplatelet RN therapy 10:19:33 Integrilin wasted 1.5 ml Lupillo Sharee for (Bolus 2mg/ml) [facility] Garrison Feldman antiplatelet RN therapy 10:19:44 Plavix P.O. 600 mg Lupillo Sharee for [facility] Garrison Feldman antiplatelet RN therapy Procedure Log Time Note 9:37:59 Admit Source: Other 9:38:01 Arrival Date: 02/07/2020 12:00:00 AM 9:38:20 Insurance Payor : Private health insurance 9:40:28 Lab Result : BUN 22 mg/dl 9:40:28 Lab Result : Creatinine 1 mg/dl 9:40:28 Lab Result : eGFR NONAFRICAN 79.77585 ml/min 9:40:28 Lab Result : Hemoglobin 12.8 g/dl 9:41:03 Procedure Status Elective Heart Cath (OP). 9:41:05 Sharee Feldman RN sent for patient. Start room use. 9:41:07 Time tracking: Regular hours (M-F 7:00 - 5:00) 9:41:13 Plan of Care:Hemodynamics will remain stable., Cardiac rhythm will remain stable., Comfort level will be maintained., Respiratory function will remain adequate., Patient/ family verbilizes understanding of procedure., Procedure tolerated without complication., Recovers from procedure without complications.. 9:41:18 Patient received from Pre/Post Procedure Room to CCL 1 Alert and oriented. Tansferred to table in Supine position. 9:41:21 Signed procedure consent form obtained from patient. 9:41:22 Warm blankets applied, and marco hugger turned on for patient comfort. 9:41:22 Correct patient and procedure confirmed by team. 9:41:24 ECG and BP/O2 sat monitors applied to patient. 9:41:30 H&P Date Dictated: 02/07/2020 Within 30 days and on chart., H&P Addendum completed by physician on day of procedure. (MUST COMPLETE FOR ALL OUTPATIENTS). 9:41:32 Pre-procedure instructions explained to patient. 9:41:35 Family in patients room. 9:41:37 Patient NPO since Midnight. 9:41:57 Patient allergic to Other allergyPCN, Codine 9:42:00 Is the patient allergic to Iodine/contrast media? No. 9:42:07 Was the patient premedicated? Yes 9:42:08 Is patient on blood thinner?No 9:42:10 Patient diabetic? No. 9:42:14 Snore? Yes 9:42:15 Sleep apnea? No 9:42:21 Patient pain scale 0/10 ?. 9:42:31 IV patent on arrival in left hand with 0.9% NaCl at KVO. 9:42:39 Lab results completed and on chart. 9:43:09 Stress Test: yes; abnormal apical, anterior 9:43:14 Right Radial & Right Groin area was prepped with chlora-prep and draped in sterile fashion 9:43:15 Alarms reviewed by R. N. 9:43:16 Sharps counted by scrub and verified by R.N. 9:44:55 Vital chart was started 9:45:03 0.9% NaCl 100 ml/hr I.V. was administered by Sharee Feldman RN; used for procedure; Verbal order read back and verified. 9:45:09 Oxygen 2 l/min etCO2 Nasal cannula was administered by Sharee Feldman RN; used for procedure; Verbal order read back and verified. 9:45:13 Lidocaine 2% 20ml vial added to field was administered by Lupillo Jimenez MD; for local anesthetic; Verbal order read back and verified. 9:45:17 Heparin Flush Bag (1000units/500ml NS) 2 bags added to field was administered by Lupillo Jimenez MD; used for procedure; Verbal order read back and verified. 9:45:23 Radial Cocktail (Verapamil 2mg/Nitro 400mcg/Heparin 1500units) 1 syringe added to field was administered by Lupillo Jimenez MD; used for procedure; Verbal order read back and verified. 9:49:23 Baseline sample Acquired. 9:49:27 Rhythm: sinus rhythm 9:49:29 Full Disclosure recording started 10:05:08 Physician arrived 10:05:09 --------ALL STOP TIME OUT------ 10:05:09 Final Timeout: patient, procedure, and site verified with staff and physician. All members of the team are in agreement. 10:05:11 Right Radial & Right Groin site verified by team. 10:05:16 Fire Safety Assessment: A--An alcohol-based skin anteseptic being used preoperatively., C--Open oxygen or nitrous oxide is being used., D--An ESU, laser, or fiber-optic light is being used. 10:05:22 Physical assessment completed. ASA score P 2 - A patient with mild systemic disease as per Lupillo Jimenez MD. 10:05:26 2) 60-89 Mildly reduced kidney function, and other findings (as for stage 1) point to kidney disease. 10:05:46 Maximum allowable contrast dose (3.7 X eGFR X 0.75)220 ml. 10:05:50 Sedation plan: IV Moderate Sedation Medication:Versed, Fentanyl 10:05:59 Use device set Radial Dx or PCI 10:06:00 ACIST Syringe (30717) opened to sterile field. 10:06:05 Medline Cath Pack ([id number]) opened to sterile field. 10:06:05 Bag Decanter () opened to sterile field. 10:06:06 ACIST Hand Control (54476) opened to sterile field. 10:06:06 ACIST Manifold (42342) opened to sterile field. 10:06:07 Tegaderm 4 x 4 (1626W) opened to sterile field. 10:06:08 MBrace Wrist Support ([id number]) opened to sterile field. 10:06:10 EMERALD Guide Wire (502-489) opened to sterile field. 10:06:11 SHEATH 6FR RAIN (1360583) opened to sterile field. 10:06:38 Versed 2 mg I.V. was administered by Sharee Feldman RN; for sedation; Verbal order read back and verified. 10:06:46 Fentanyl 50 mcg I.V. was administered by Sharee Feldman RN; for sedation; Verbal order read back and verified. 10:09:56 Procedure started. 10:10:19 Local anesthetic to right radial artery with Lidocaine 2% by Lupillo Jimenez MD.INITIAL ACCESS ONLY 10:11:22 A 6 Fr Short sheath was inserted into the Right Radial artery 10:11:26 J wire advanced. 10:11:36 A DIAGNOSTIC [place] 110cm 5 Fr catheter (576948) was advanced over the wire and used for Procedure. 10:11:48 LV angiography performed. 10:11:55 Zero performed for pressure channel P1 10:11:58 Zero performed for pressure channel P1 10:12:01 Zero performed for pressure channel P1 10:12:04 Zero performed for pressure channel P1 10:12:12 Zero performed for pressure channel P1 10:13:07 EF : 55 % 10:13:10 LCA angiography performed. 10:13:42 Versed 2 mg I.V. was administered by Sharee Feldman RN; for sedation; Verbal order read back and verified. 10:13:46 Fentanyl 50 mcg I.V. was administered by Sharee Feldman RN; for sedation; Verbal order read back and verified. 10:14:23 RCA angiography performed. 10:15:14 Catheter removed. 10:15:15 Proceeding to intervention. 10:15:44 INFLATOR Merit BasixCompak (MT6267) opened to sterile field. 10:15:44 WHISPER 300cm guide wire ([id number]) opened to sterile field. 10:15:45 GUIDE 6FR XBLAD 3.5 catheter (32859983) opened to sterile field. 10:15:56 6 Fr XBLAD guide catheter was inserted over the wire 10:16:39 Whisper wire advanced. 10:19:01 Heparin Bolus 5000 units I.V. was administered by Sharee Feldman RN; for anticoagulation; verified with Dr. Coats Verbal order read back and verified. 10:19:04 Versed 2 mg I.V. was administered by Sharee Feldman RN; for sedation; Verbal order read back and verified. 10:19:07 Fentanyl 50 mcg I.V. was administered by Sharee Feldman RN; for sedation; Verbal order read back and verified. 10:19:14 Integrilin (Bolus 2mg/ml) 8.5 ml I.V. was administered by Sharee Feldman RN; for antiplatelet therapy; Verbal order read back and verified. 10:19:33 Integrilin (Bolus 2mg/ml) 1.5 ml wasted was administered by Sharee Feldman RN; for antiplatelet therapy; Verbal order read back and verified. 10:19:44 Plavix 600 mg P.O. was administered by Sharee Feldman RN; for antiplatelet therapy; Verbal order read back and verified. 10:23:48 Place stent Inflation Number: 1 A MEGAN OTW 2.5 x 22 stent ([id number]) was prepped and advanced across the Dist LAD 80. The stent was deployed at 14 JASMINE for 0:38 (min:sec) 0. 10:24:27 Inflation number: 2 The stent balloon was then re-inflated across the Dist LAD 0 to 14 JASMINE for 0:22 (min:sec) . 10:26:00 Inflation number: 3 The stent balloon was then re-inflated across the Dist LAD to 5 JASMINE for 0:12 (min:sec) . 10:27:22 Stent catheter was removed intact over wire. 10:31:38 Place stent Inflation Number: 1 A MEGAN RX 3.0 x 15 stent ([id number]) was prepped and advanced across the Mid LAD 80. The stent was deployed at 14 JASMINE for 0:09 (min:sec) 0. 10:32:42 Inflation number: 2 The stent balloon was then re-inflated across the Mid LAD 0 to 14 JASMINE for 0:20 (min:sec) . 10:33:12 Wire removed. 10:33:13 Guide catheter removed. 10:33:20 ZEPHYR LARGE TR BAND (623276) opened to sterile field. 10:33:40 Sheath removed intact; hemostasis achieved with Mechanical Compression to the Right Radial artery. 10:33:42 Procedure ended.(Physican Out) 10:33:54 Fluoroscopy time 08.40 minutes. 10:33:58 Fluoroscopy dose: 1340 mGy 10:33:58 Flurop Dose total: 1340 10:34:03 Dose Area Product 61854 mGy/cm. 10:34:23 Contrast amount:Isovue 370 220ml. 10:34:54 Maximum allowable dose exceeded? No. 10:34:55 Sharps counted by scrub and verified by R.N. 10:34:58 [place] band inflated with 10cc of air. 10:34:59 Insertion/operative site no bleeding no hematoma. 10:35:04 Post Procedure Pulses reassessed and unchanged 10:35:12 Post-procedure physical assessment completed. ASA score P 3 - A patient with severe systemic disease as per Lupillo Jimenez MD. 10:35:15 Post procedure rhythm: unchanged. 10:35:19 Estimated blood loss: 5 ml 10:35:21 Post procedure instruction explained to patient.Patient verbalizes understanding. 10:35:51 Procedure type changed to Cath procedure, Diagnostic procedure, LHC, [facility] w/Coronaries, Sedation Charges, Moderate Sedation up to 30 minutes, PCI procedure, Coronary Stent, Coronary Stent Initial, Hemochron ACT Test 10:36:06 Procedure and supply charges have been captured, reviewed, submitted and are correct. 10:36:30 Procedure Complication : No complications 10:36:31 ACT drawn and resulted at 251 seconds. (normal therapeutic range 180-240 seconds). 10:36:33 Vital chart was stopped 10:36:37 [facility] Findings: MVD- PCI performed (see procedure note) 10:36:42 Report given to Pre/Post Procedure Room. 10:36:46 Patient transfered to Pre/Post Procedure Room with Stretcher. 10:36:48 Procedure ended. 10:36:48 Full Disclosure recording stopped 10:36:51 End room use (Document Last) 10:37:00 ACC-PCI Only Patient was given prescriptions, or instructed by Lupillo Jimenez MD to start/continue the following medications upon discharge: Plavix Intervention Summary Intervention Notes Time ActionType Lesion and Equipment Used Action# Pressure Duration Attributes 10:23:48 Place stent Dist LAD MEGAN OTW 2.5 x 1 14 00:38 22 stent ([id number]) 10:24:27 Reinflate Dist LAD MEGAN OTW 2.5 x 2 14 00:22 stent 22 stent balloon ([id number]) 10:26:00 Reinflate Dist LAD MEGAN OTW 2.5 x 3 5 00:12 stent 22 stent balloon ([id number]) 10:31:38 Place stent Mid LAD MEGAN RX 3.0 x 1 14 00:09 15 stent ([id number]) 10:32:42 Reinflate Mid LAD MEGAN RX 3.0 x 2 14 00:20 stent 15 stent balloon ([id number]) Device Usage Item Name Manufacture Quantity Catalog Hospital Part [facility] Lot# / Number Charge Number Stock Stock Serial# Code ACIST Syringe Acist 1 63453 464183 083834 592152 20 (09199) Medical Systems Inc Medline Cath Medline 1 [id number] 604969 23935 924450 5 Pack ([id number]) Bag Decanter Microtek 1 2001S 129925 29545 145180 5 (2001S) Medical Inc. ACIST Hand Acist 1 95306 104487 828410 482653 5 Control Medical (90952) Systems Inc ACIST Manifold Acist 1 55094 571400 232271 063105 5 (58775) Medical Systems Inc Tegaderm 4 x 4 3M 1 1626W 999607 462218 727633 5 (1626W) MBrace Wrist Advanced 1 140-0250-00 097905 26554 019633 5 Support Vascular ([id number]) Dynamics EMERALD Guide Cardinal 1 502-455 587160 735009 578864 5 Wire (502-455) Health SHEATH 6FR Cardinal 1 1671346 090670 3715197 871236 5 RAIN (0448449) Health DIAGNOSTIC Terumo 1 40-8096 981607 667007 899979 5 [place] 110cm 5 Fr catheter (220895) INFLATOR Merit Merit 1 YN1680 743217 856812 470627 15 Peak Positioning TechnologiesMountain View HospitalUrban Gentleman Medical (ER7033) WHISPER 300cm [place] 1 [id number] 080778 435420 723284 5 guide wire Vascular ([id number]) GUIDE 6FR Cardinal 1 [id number] 969986 645188 047696 10 XBLAD 3.5 Health catheter (09748153) MEGAN OTW 2.5 x Medtronic 1 [id number] 832905 92928 895975 5 [id number] 22 stent ([id number]) MEGAN RX 3.0 x Medtronic 1 [id number] 799867 1784221 762936 5 [id number] 15 stent ([id number]) ZEPHYR LARGE Cardinal 1 494737 157747 0114189 024611 5 C9 Media (178338) Signature Audit [place] Stage Time Signature Unsigned Intra-Procedure 02/07/2020 Olga Abraham 10:37:28 AM RT(R) Intra-Procedure 02/07/2020 Sharee Feldman 10:37:46 AM RN Intra-Procedure 02/07/2020 [place]up[place] 10:38:[address] [facility] [address] [place] [address]
[~2020-02-07 07:03] MED LIST changes: +HYDROCODON-ACE1 EAC7 PO; +MELATONIN 3 MG1 TAB PO; +MICARDIS20 MG PO; +PLAVIX75 MG PO; +PRAVACHOL20 MG PO
[2020-02-07 08:29] VITALS: BP 138/79; Ht 175.3 cm; Wt 92.2 kg
[2020-02-07 08:39] LABS: BASOPHILS 0.5 % (0-2); HEMATOCRIT 38.3 % (42.0-54.0); HEMOGLOBIN 12.8 g/dL (13.5-17.5); IMMATURE GRANULOCYTES 0.2 % (0-5); LYMPHOCYTES 41.1 % (15-50); MCH 31.1 pg (26.0-34.0); MCHC 33.4 g/dL (31.0-37.0); MEAN PLATELET VOLUME 8.9 fL (7.4-10.4); MONOCYTES 8.6 % (2-11); NEUTROPHILS 45.6 % (40-80); PLATELET COUNT 166 10x3/uL (130-400); RBC 4.12 10x6/uL (4.20-6.10); RDW 12.5 % (11.5-14.5); WBC 5.7 10x3/uL (4.8-10.8)
[2020-02-07 08:57] LABS: ALT (SGPT) 26 U/L (10-68); CALC OSMOLALITY 282 mosm/kg (275-300); CALCIUM 8.8 mg/dL (8.5-10.1); CHLORIDE - SERUM 107 mmol/L (98-107); CHOL - HDL RATIO 3.5 ratio (2.3-4.9); CHOLESTEROL, TOTAL 153 mg/dL (0-200); GLUCOSE 111 mg/dL (74-106); HDL CHOLESTEROL 44 mg/dL (32-96); LDL CHOLESTEROL 92 mg/dL (0-100); LDL-HDL RATIO 2.1 ratio (1.5-3.5); POTASSIUM - SERUM 4.2 mmol/L (3.5-5.1); SODIUM 140 mmol/L (136-145); TRIGLYCERIDE 85 mg/dL (30-200); UREA NITROGEN 22 mg/dL (7-18); eGFR NON AFRICAN AMERICAN 79 mL/min (90-120)
--- NOTE | 2020-02-07 10:47 | NUR ---
PT REC'D TO ROOM 6 VIA STRETCHER FROM RESEARCH AND DEVELOPMENT RESEARCHER. MONITORS ESTAB. AT BS. SEE ROLL OVER LOADER. ALARMS ON AND C/L IN REACH.
--- NOTE | 2020-02-07 11:00 | NUR ---
R WRIST SITE C/D/I, NO S/S BLEEDING OR HEMATOMA. R HAND/ARM WARM WITH PALP PULSES AND BRISK CAP REFILL.
--- NOTE | 2020-02-07 11:30 | NUR ---
R WRIST SITE C/D/I, NO S/S BLEEDING OR HEMATOMA. R HAND/ARM WARM, PULSES PALP AND BRISK CAP REFILL. VSS. PT DENIES NEEDS. ALARMS ON AND C/L IN REACH.
--- NOTE | 2020-02-07 12:00 | NUR ---
VSS. PT RESTING QUIETLY. R WRIST SITE C/D/I, NO S/S BLEEDING OR HEMATOMA. R ARM/HAND WARM WITH PALP PULSES AND BRISK CAP REFILL. AT BS. ALARMS ON AND C/L IN REACH.
--- NOTE | 2020-02-07 12:30 | NUR ---
R WRIST SITE C/D/I, NO S/S BLEEDING OR HEMATOMA. HAND WARM, PULSES PALP. PT RESTING QUIETLY, VSS. ALARMS ON AND C/L IN REACH.
--- NOTE | 2020-02-07 12:53 | NUR ---
PT REPOSITIONED UP IN BED. R WRIST SITE C/D/I. SANDWICH TRAY PROVIDED AND FRESH WATER. ALARMS ON AND C/L IN REACH.
--- NOTE | 2020-02-07 13:15 | NUR ---
PT ATE ALL OF SANDWICH, GIVEN FRESH COFFEE PER REQUEST. R WRIST SITE C/D/I, NO S/S BLEEDING OR HEMATOMA.
--- NOTE | 2020-02-07 13:35 | NUR ---
5CC AIR REMOVED FROM Z BAND, NO S/S BLEEDING OR HEMATOMA. HAND WARM WITH PULSES PALP. VSS. PT SITTING UP READING BOOK, DENIES PAIN OR NEEDS.
--- NOTE | 2020-02-07 14:00 | NUR ---
ALL AIR REMOVED FROM Z BAND, NO S/S BLEEDING OR HEMATOMA. VSS. WILL CONT CLOSE MONITORING. C/L IN REACH.
--- NOTE | 2020-02-07 14:15 | NUR ---
R WRIST SITE C/D/I. PIV D/C'D INTACT, DSG APPLIED. PT ALLOWED UP TO GET DRESSED AND GO TO RESTROOM INDEPENDENTLY.
--- NOTE | 2020-02-07 14:28 | NUR ---
Z BAND OFF, NO S/S OF BLEEDING OR SWELLING - DSG APPLIED. ALL D/C INSTRUCTIONS REVIEWED WITH PT AND HIS - INCLUDING RESTRICTIONS, MEDICATIONS AND FOLLOW UP APPT.
--- NOTE | 2020-02-07 14:35 | NUR ---
PT D/C'D TO PRIVATE VEHICLE WITH ALL PAPER WORK AND BELONGINGS.
--- NOTE | 2020-02-08 10:50 | OP ---
PATIENT NAME: ALANNA LOPEZ MEDICAL RECORD: [id number] :52 LOCATION:D.CAT ADMISSION DATE: SURGEON: ZUNILDA CLAY MD DATE OF OPERATION: 02/07/2020 PROCEDURE: Left heart catheterization, selective coronary angiography, plus PTCA stent LAD. FINDINGS: Left ventriculography in 30-degree MARISCAL view: Normal wall motion and normal systolic function. CORONARY ANATOMY: LEFT MAIN: Left main is free of disease. LAD: LAD distal to the stent has a long diffuse stenosis all the way down to the apex of the LAD. This varies from 80% to 90% throughout this area. CIRCUMFLEX: Moderate size circumflex free of disease. RIGHT CORONARY ARTERY: Codominant system, free of disease. PLAN: Intervention to LAD momentarily. DESCRIPTION OF PROCEDURE: Using indwelling radial sheath, XB LAD guiding catheter provided excellent guide catheter support followed by 300 cm Whisper wire. Stents deployed were 2.5 x 22 mm and 3.0 x 15 mm both Armin drug-eluting stents up to 14 atmospheres for 45 seconds. Final angiography shows excellent resolution of a long diffuse 80% stenosis, no significant residual. JAY flow was 3 throughout the procedure. Heparin and Integrilin were used during the case. Plavix was loaded in the lab. Sheath closed with TR band. TRANSINT:[id number] Voice Confirmation ID: [id number] DOCUMENT ID: [id number] ZUNILDA CLAY MD at 1050 CC: [id number] DICTATION DATE: 02/07/20 1040 DOT NET ARCHITECT: 02/07/20 1543 DEP CLI 02/07/20 [id number] [place] [address]
--- NOTE | 2020-02-08 10:50 | HP ---
PATIENT: ALANNA LOPEZ MEDICAL RECORD: [id number] ACCOUNT: [id number] LOCATION:KOLE : 52 ADMISSION DATE: 02/07/20 PCP: JOSE M FERNANDEZ DO HISTORY AND PHYSICAL EXAMINATION HISTORY OF PRESENT ILLNESS: A 69-year-old gentleman with known history of coronary artery disease, status post intervention of circumflex, residual disease at this time, managed medically, has been having increasing angina over the past 2 months, finding of rest symptomology and with Cardiolite stress testing showed consistent with 2-vessel disease. Plan for angiography, intervention based on the results. PAST MEDICAL HISTORY: Includes; 1. History of hypertension. 2. Hyperlipidemia. ALLERGIES: PENICILLIN AND CODEINE. MEDICATIONS: Include carvedilol 6.25 b.i.d., Micardis 20 every day, amitriptyline 50 at bedtime, tramadol 50 every 6 hours p.r.n., omeprazole 20 every day. PHYSICAL EXAMINATION: GENERAL: Pleasant gentleman in no acute distress, appears stated age. HEENT: Normocephalic, atraumatic. NECK: No JVD or bruit. HEART: Regular. LUNGS: Back clear. ABDOMEN: Soft, nontender. EXTREMITIES: Pulse 2+. No edema. DIAGNOSTIC DATA: Nuclear stress testing consistent with 2-vessel disease. PLAN: For angiography. Further recommendations based on the above. TRANSINT:[id number] Voice Confirmation ID: [id number] DOCUMENT ID: [id number] ZUNILDA CLAY MD at 1050 CC: [id number] DICTATION DATE: 02/07/20 0956 MURAL ARTIST: 02/07/20 1221 DEP CLI 02/07/20 [facility] [address] [id number]
== END | disposition home or self-care (01) ==
LOC: D.CATH 07:03
PROVIDERS: ATTEND Internal Medicine Interventional Cardiology
DX: I25.119 Atherosclerotic heart disease of native coronary artery with unspecified angina pectoris (principal); I10 Essential (primary) hypertension; I25.2 Old myocardial infarction